=== PATIENT | male | born 1940 | race Caucasian/White ===

== ENCOUNTER 2018-10-12 12:10 | Inpatient (IN) | payer MEDICARE, BC ==
[2018-10-12] MEDS ORDERED: Ondansetron PF 4 MG/2 ML Vial ONE ×2 (12:25→23:00)
[2018-10-12] MEDS ORDERED: Atropine Sulfate 1 mg/10 ml Syringe ONE (12:30)
[2018-10-12 12:41] LABS: #Eosinphils 0.1 thou/uL (0.0-0.7); #Lymphocytes 1.4 thou/uL (1.20-3.40); #Monocytes 0.8 thou/uL (0.11-0.59); #Neutrophils 12.7 thou/uL (1.40-6.50); %Basophils 0.1 % (0.0-1.0); %Eosinophils 0.5 % (0.0-10.0); %Lymphocytes 9.3 % (21.0-51.0); %Monocytes 5.1 % (0.0-10.0); %Neutrophils 84.9 % (42.0-75.0); Hemoglobin 13.7 g/dL (14.0-18.0); Mean Corpuscular HGB CONC 32.3 g/dL (32.0-36.0); Mean Corpuscular Hemoglobin 27.7 pg (27.0-31.0); Mean Corpuscular Volume 85.8 fL (78.0-98.0); Mean Platelet Volume 8.6 fL (7.4-10.4); Platelet Count 236 thou/uL (130-400); RBC Distribution Width 15.2 % (11.5-14.5); Red Blood Cell (RBC) Count 4.93 mill/uL (4.70-6.10)
[2018-10-12 12:58] LABS: Base Excess-Venous -5.6 mmol/L (-2.0 to 3.0); Bicarbonate (HCO3v) 17.2 mmol/L (22.0-28.0); CO2 Tension (PvCO2) 26.5 mmHg (40.0-50.0); Calcium, Ionized 1.01 mmol/L (See Comments:); Chloride 105 mmol/L (98-107); Glucose 168 mg/dL (83-110); Hemoglobin - Calc 14.4 g/dL (14.0-18.0); O2 Tension (PvO2) 49.2 mmHg (35.0-45.0); Potassium 3.5 mmol/L (3.5-5.1); Sodium 139 mmol/L (138-145)
[2018-10-12] MEDS ORDERED: ISOVUE-370 76%-LOCM 1 ML ONE (12:58)
[2018-10-12 13:11] LABS: Base Excess-Venous -3.3 mmol/L (-2.0 to 3.0); Bicarbonate (HCO3v) 22.2 mmol/L (22.0-28.0); CO2 Tension (PvCO2) 40.4 mmHg (40.0-50.0); Calcium, Ionized 1.16 mmol/L (See Comments:); Chloride 105 mmol/L (98-107); Glucose 180 mg/dL (83-110); Hemoglobin - Calc 12.8 g/dL (14.0-18.0); Lactate 2.37 mmol/L (0.50-2.20); O2 Tension (PvO2) 49.6 mmHg (35.0-45.0); Potassium 3.8 mmol/L (3.5-5.1); Sodium 138 mmol/L (138-145); T. Carbon Dioxide 23.4 mmol/L (22.0-28.0); pH (Venous) 7.348 (7.320-7.430); vO2 Saturation-calc 82.8 % (60.0-85.0)
[2018-10-12 13:21] LABS: PTT 27.6 SEC (22.9-36.1)
[2018-10-12 13:22] LABS: INR-International Normal Ratio 1.3; Prothrombin Time 15.8 SEC (12.0-14.7)
[2018-10-12 13:25] LABS: Calc. Creatinine Clearance 0 mL/min (70-130)
[2018-10-12 13:43] LABS: Anion Gap 15 mmol/L (10-20); Carbon Dioxide 21 mmol/L (23-31); Chloride 105 mmol/L (98-107); Potassium 3.9 mmol/L (3.5-5.1); Sodium 137 mmol/L (136-145)
[2018-10-12 13:44] LABS: BUN (Urea Nitrogen) 18 mg/dL (8.4-25.7); Estimated GFR-MDRD 61
[2018-10-12 13:46] LABS: Bilirubin, Total 1.3 mg/dL (0.2-1.2); Calcium 8.6 mg/dL (7.8-10.44); Glucose 181 mg/dL (83-110)
[2018-10-12 13:47] LABS: Protein, Total 5.8 g/dL (5.8-8.1)
[2018-10-12 13:48] LABS: Albumin 3.5 g/dL (3.4-4.8)
[2018-10-12 13:49] LABS: Globulin 2.3 g/dL (2.4-3.5)
[2018-10-12 13:50] LABS: Alkaline Phosphatase 130 U/L (40-150)
[2018-10-12 13:51] LABS: AST (SGOT) 35 U/L (5-34); CK (CPK) 39 U/L (30-200)
[2018-10-12 13:52] LABS: ALT (SGPT) 25 U/L (8-55)
--- NOTE | 2018-10-12 13:57 | CT ---
CTA OF THE CHEST AND ABDOMEN AND PELVIS: HISTORY: Abdominal pain that radiates to the back. TECHNIQUE: Multiple contiguous axial images were obtained in a CTA of the chest, abdomen, and pelvis per aortic dissection protocol. Three-D sagittal and coronal MIP reformats were performed. FINDINGS: Emphysematous changes are seen in the lungs. A calcified granuloma is seen in the right upper lobe. No suspicious pulmonary nodules are seen. No focal infiltrates are present. No pneumothorax or ple ural effusions are seen. The heart is normal in size without focal cardiac abnormality. No hilar or mediastinal lymphadenopat hy are seen. There is a small hiatal hernia. Numerous cysts are seen in the liver measuring up to 3.2 cm in size. Calcifications in the liver and spleen are from prior granulomatous disease. There are stranding changes surrounding the pancreas consistent with acute pancreatitis. No enlargem ent of the common bile duct is seen. No free air or free fluid is seen in the abdomen or pelvis. Th e large and small bowel are unremarkable. No abdominal or pelvic lymphadenopathy are seen. Calcifications are seen in the coronary arteries. The patient is status post CABG. The thoracic aorta is normal in caliber without evidence of dissection or aneurysmal dilatation. Mod erate atherosclerotic disease is seen in the infrarenal aorta. There is an area of aneurysmal dilata tion of the infrarenal aorta above the bifurcation where it measures 3.7 cm in greatest dimension. N o enlargement of the common iliac arteries is seen. The celiac trunk, SMA, and ARSENIO are patent. A si ngle renal artery is seen on each side without significant atherosclerotic disease. IMPRESSION: 1. Acute pancreatitis. 2. No evidence of aortic dissection. 3. 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 4. Hepatic cysts. POS: [facility]
--- NOTE | 2018-10-12 14:10 | PDOC.FPRHP ---
- History of Present Illness Chief Complaint: Abdominal pain, N/V History of Present Illness: 78 yo M with PMH One episode vomiting before starting 8 hour car ride from [place] to [facility]. In car started to have vomiting. In car pt got hot/cold and "almost passed out on me". states he was out of it and green/ashy. He was responsive but just not with it for about 20-30 min until arriving to ED. He continues to feel nauseous. Reports middle lower abdominal pain that has continued to worsen. Reports constipation, denies dysuria. Says he peed very early this morning but has not since. Took home lasix this morning and says he did not vomit this. Denies fever, reports chills. Last cath 06/2018. Plan for 01/2019 to have echo, stress trest. 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 Previous alcohol use. No drug use. - Review of Systems General: reports: fever/chills ENT: denies: nasal congestion Respiratory: denies: cough, shortness of breath, exercise intolerance Cardiovascular: denies: chest pain, palpitation, orthopnea Gastrointestinal: reports: nausea, vomiting, constipation, abdominal pain. denies: diarrhea Genitourinary: denies: incontinence, dysuria Skin: denies: rashes Neurological: denies: numbness, syncope Psychological: reports: anxiety. denies: depression - Vital signs BP: 171/91 HR: 84 RR: 29 Tmax: Pox: 98% on 1L Wt: 66 kg FMR H&P: Results - Labs Result Diagrams: 10/12/18 12:25 10/12/18 12:47 Lab results: WBC 15.0 thou/uL (4.8-10.8) H 10/12/18 12:25 Hgb 13.7 g/dL (14.0-18.0) L 10/12/18 12:25 Hct 42.3 % (42.0-52.0) 10/12/18 12:25 MCV 85.8 fL (78.0-98.0) 10/12/18 12:25 Plt Count 236 thou/uL (130-400) 10/12/18 12:25 Neutrophils % 84.9 % (42.0-75.0) H 10/12/18 12:25 VBG pCO2 40.4 mmHg (40.0-50.0) 10/12/18 13:08 VBG pO2 49.6 mmHg (35.0-45.0) H 10/12/18 13:08 Sodium 137 mmol/L (136-145) 10/12/18 12:47 Potassium 3.9 mmol/L (3.5-5.1) 10/12/18 12:47 Chloride 105 mmol/L (98-107) 10/12/18 12:47 Carbon Dioxide 21 mmol/L (23-31) L 10/12/18 12:47 BUN 18 mg/dL (8.4-25.7) 10/12/18 12:47 Creatinine 1.15 mg/dL (0.7-1.3) 10/12/18 12:47 Glucose 181 mg/dL (83-110) H 10/12/18 12:47 Lactic Acid 2.4 mmol/L (0.5-2.2) H 10/12/18 13:05 Calcium 8.6 mg/dL (7.8-10.44) 10/12/18 12:47 Total Bilirubin 1.3 mg/dL (0.2-1.2) H 10/12/18 12:47 AST 35 U/L (5-34) H 10/12/18 12:47 ALT 25 U/L (8-55) 10/12/18 12:47 Alkaline Phosphatase 130 U/L (40-150) 10/12/18 12:47 Creatine Kinase 39 U/L (30-200) 10/12/18 12:47 Serum Total Protein 5.8 g/dL (5.8-8.1) 10/12/18 12:47 Albumin 3.5 g/dL (3.4-4.8) 10/12/18 12:47 FMR H&P: A/P - Problem List (1) Acute pancreatitis Current Visit: Yes Status: Acute Code(s): K85.90 - ACUTE PANCREATITIS WITHOUT NECROSIS OR INFECTION, UNSP (2) Symptomatic bradycardia Current Visit: Yes Status: Acute Code(s): R00.1 - BRADYCARDIA, UNSPECIFIED (3) Urinary retention Current Visit: Yes Status: Acute Code(s): R33.9 - RETENTION OF URINE, UNSPECIFIED (4) Lactic acid acidosis Current Visit: Yes Status: Acute Code(s): E87.2 - ACIDOSIS (5) Hypothermia Current Visit: Yes Status: Acute Code(s): T68.XXXA - HYPOTHERMIA, INITIAL ENCOUNTER (6) Constipation Current Visit: Yes Status: Acute Code(s): K59.00 - CONSTIPATION, UNSPECIFIED (7) CAD (coronary artery disease) Current Visit: Yes Status: Acute Code(s): I25.10 - ATHSCL HEART DISEASE OF [place] CORONARY ARTERY W/O ANG PCTRS (8) COPD (chronic obstructive pulmonary disease) Current Visit: Yes Status: Acute (9) HTN (hypertension) Current Visit: Yes Status: Acute Code(s): I10 - ESSENTIAL (PRIMARY) HYPERTENSION (10) HLD (hyperlipidemia) Current Visit: Yes Status: Acute Code(s): E78.5 - HYPERLIPIDEMIA, UNSPECIFIED (11) Anxiety Current Visit: Yes Status: Acute Code(s): F41.9 - ANXIETY DISORDER, UNSPECIFIED (12) Atrial fibrillation Current Visit: Yes Status: Acute Code(s): I48.91 - UNSPECIFIED ATRIAL FIBRILLATION (13) BPH (benign prostatic hyperplasia) Current Visit: Yes Status: Acute Code(s): N40.0 - BENIGN PROSTATIC HYPERPLASIA WITHOUT LOWER URINRY TRACT SYMP (14) CHF (congestive heart failure) Current Visit: Yes Status: Acute Code(s): I50.9 - HEART FAILURE, UNSPECIFIED (15) GERD (gastroesophageal reflux disease) Current Visit: Yes Status: Acute Code(s): K21.9 - GASTRO-ESOPHAGEAL REFLUX DISEASE WITHOUT ESOPHAGITIS - Plan 78 yo M with PMH CAD, COPD, HTN, afib on anticoagulation, CHF, BPH presented to ED abdominal pain. Acute Pancreatitis - seen on CT, lipase 8871, amylase 2947. WBC 15. Lactic 3. SIRS + by WBC and hypothermia however inflammatory source rather than infectious. Will culture if fevers or worsens. - patient endorses alcohol use of 2 glasses wine/night - many initial labs drawn in ED were "contaminated" and unreliable. Pending repeats on some of these. - RUQ ultrasound pending - NPO now, advance diet as tolerated - LR @ 200, will monitor for signs of volume overload with uncertain hx of CHF Symptomatic Bradycardia - episode of bradycardia in 30s, 90/37 BP. s/p atropine and IVF in ED which resolved. - has hx of atrial fibrillation and currently has loop recorder with hx of PVCs - now resolved with BP 150s, HR 87, stable - TSH pending - will continue to monitor and consider cardiology consult Urinary Retention - >1000mL, parker inserted in ED - no hx retention but does have BPH - will continue tamsulosin when parker out - UA negative Lactic Acidosis - 3 initially. pending repeat Hypothermia, resolved - 96.6 in ED, resolved with bear hugger in ED Constipation - urinary retention could have contributed - colace ordered CAD s/p CABG - home aspirin 81mg daily COPD - home fluticasone and atrovent HTN - home carvedilol 3.125 mg daily, lisinopril 2.5mg daily HLD - home atorvastatin 80 mg daily Anxiety - home alprazolam prn Atrial fibrillation - home eliquis 5 mg BID BPH - home finasteride 5mg daily, tamsulosin 0.4mg- 2 capsules daily CHF - home furosemide 20mg daily and potassium 20 meq daily in addition to BP meds GERD - home nexium 40mg daily PCP: out of town Ppx: Lovenox Diet: NPO, advance as tolerated Dispo: admit to [facility], expected stay >[address] Chacon. FMR H&P: Upper Level - Pertinent history 78 year old male with PMH CAD s/p CABG x3, Hx TIA, Hx of arrhythmia with loop recorder presents with N/V and severe abdominal pain since this AM. Patient and his were on their way from [place] when patient started to feel "odd ". He went through spells of being hot and cold. He felt faint, but denies losing consciousness. states he appeared ashy at the time. He was also responsive but appeared confused and lethargic. He continues to feel nauseous and continues to have abdominal pain located diffusely throughout, but worse in the suprapubic region. Patient denies dysuria but states that he has not used the restroom since this morning despite taking his lasix. He does have a history of BPH but has not had significant issues with urinary retention. Patient also endorses constipation currently. Patient denies nausea, vomiting. He does have CAD s/p CABG x3. He follows closely with data clerk [employer]. He is due for echo and stress test 01/2019. Patient denies chest pain, shortness of breath, dizziness, or weakness. - Pertinent findings General: Alert and oriented x3. No acute distress. HEENT: EOMI. PERRLA. No pharyngeal erythema. Dentures in place. Cardio: RRR, no murmurs Resp: Decreased breath sounds throughout, no wheezing, no acute respiratory distress Abdomen: Diffusely tender to palpation, worse in suprapubic region, positive rebound tenderness in LLQ, referred pain to suprapubic region when palpating other areas on abdomen, bowel sound decreased throughout Ext: No edema or cyanosis - Plan Date/Time: 10/12/18 1410 I, Anna Armenta, have evaluated this patient and agree with findings/plan as outlined by planner intern resident. Pertinent changes/additions are listed here. 78 year old male presents with abdominal pain, N/V 1. Acute pancreatitis - Pancreatic fat stranding on CT, Lipase >8000 - Jaja's score of 1 - Fluid resuscitation; on LR at 200 mL/hr (will need to monitor respiratory status d/t history of CHF; consider decreasing) - NPO --> clear liquid diet when nausea resolved (initiate diet as soon as patient can tolerate) - No history of alcohol use; RUQ U/S negative for gallstones - Zofran PRN - Fentanyl for pain control d/t kidney function - Meets SIRS criteria, but no obvious source of infection 2. Symptomatic bradycardia - s/p atropine in ED - No further bradycardia - Patient with loop recorder in place d/t arrhythmias - Follows closely with data clerk [facility]; consider cardiology consult if bradycardia recurs - Patient being monitored in IMCU - TSH pending - BP stable - Thought to be vasovagal in nature per ED 3. Hypothermia - Temp on presentation 96.7 F; uncertain etiology - s/p bear hugger with temp to 99.4F - TSH pending 4. Leukocytosis - Likely 2/2 inflammation from acute pancreatitis - Meets SIRS criteria with no obvious source of infection - Consider blood cultures if patient fevers 5. Urinary Retention - >1000mL, parker inserted in ED - no hx retention but does have BPH - will continue tamsulosin - UA negative 6. Lactic Acidosis - 3 --> 2.4 - repeat pending 7. Constipation - urinary retention could have contributed - colace [place] 8. CAD s/p CABG - home aspirin 81mg daily - Home BB 9. COPD - home fluticasone and atrovent 10. HTN - home carvedilol 3.125 mg daily, lisinopril 2.5mg daily 11. HLD - home atorvastatin 80 mg daily 12. Anxiety - home alprazolam prn 13. Atrial fibrillation - home eliquis 5 mg BID 14. BPH - home finasteride 5mg daily, tamsulosin 0.4mg- 2 capsules daily 15. CHF - home furosemide 20mg daily and potassium 20 meq daily in addition to BP meds 16. GERD - home nexium 40mg daily PCP: out of town Ppx: Eliquis Diet: NPO, advance as tolerated Dispo: admit to IMCU, expected stay >2 midnights Anna Armenta, DO PGY-2
--- NOTE | 2018-10-12 14:12 | RAD ---
RADIOGRAPH CHEST 1 VIEW: HISTORY: An 78-year-old male with bradycardia. FINDINGS: The thoracic aorta is tortuous and ectatic. There is no evidence of air space density, pneumothorax, or pulmonary edema. The lateral costophrenic angles are sharp. There is no cardiomegaly. There ar e sternotomy wires. There are surgical clips overlying the left mediastinum and heart. There is a l oop recorder overlying the medial left base. IMPRESSION: 1) No acute pulmonary findings. 2) Ectasia of thoracic aorta. 3) Status post coronary artery bypass graft surgery is evidence for coronary atherosclerotic disease. frank [] POS: [facility]
[2018-10-12 14:43] LABS: Lipase 8871 U/L (8-78)
[2018-10-12 16:21] LABS: Bilirubin Negative (Negative); Blood, Urine Negative (Negative); Clarity CLEAR (Clear); Glucose, Urine (Dipstick) Negative (Negative); Leukocyte Negative (Negative); Nitrite Negative (Negative); Protein, Urine (Dipstick) Negative (Neg-Trace); Specific Gravity, Urine 1.028 (1.002-1.036); Urobilinogen 0.2 mg/dL (0.2-1.0); pH, Urine 6.5 (5.0-9.0)
[2018-10-12 16:33] LABS: Troponin I Less than 0.010 ng/mL (< 0.028)
[2018-10-12] MEDS ORDERED: Fentanyl 100 MCG/2 ML VIAL ONE ×2 (17:40→22:52)
[2018-10-12] MEDS ORDERED: Lactated Ringer's 1,000 ML IV SCH (19:47)
[2018-10-12] MEDS ORDERED: Fentanyl 100 MCG/2 ML VIAL SLOW IVP PRN (19:47)
[2018-10-12] MEDS ORDERED: Acetaminophen 325 MG TAB PO PRN (19:47)
--- NOTE | 2018-10-12 20:43 | ULT ---
ULTRASOUND ABDOMEN LIMITED: (RIGHT UPPER QUADRANT) 10/12/18 HISTORY: 78-year-old male with pancreatitis. FINDINGS: Gallbladder: Normal wall thickness. No gallstones or pericholecystic fluid identified. No sonographic Goodman's sign. Common duct: 4 mm. Liver: Several hepatic cysts adjacent to the distended gallbladder. Pancreas: Poorly visualized. Right kidney: No hydronephrosis. IMPRESSION: 1. No sonographic evidence of cholelithiasis, acute cholecystitis or biliary obstruction. 2. Several hepatic cysts. GIL Redmond POS: [facility]
[2018-10-12 21:24] LABS: Lactic Acid 1.6 mmol/L (0.5-2.2)
[2018-10-12] MEDS: Docusate 100 MG CAP PO SCH (21:31)
[2018-10-12 21:33] LABS: Troponin I 0.017 ng/mL (< 0.028)
[2018-10-13 05:17] LABS: #Lymphocytes 0.6 thou/uL (1.20-3.40); #Monocytes 0.5 thou/uL (0.11-0.59); #Neutrophils 9.2 thou/uL (1.40-6.50); %Basophils 0.1 % (0.0-1.0); %Eosinophils 0.2 % (0.0-10.0); %Lymphocytes 5.6 % (21.0-51.0); %Monocytes 4.7 % (0.0-10.0); %Neutrophils 89.5 % (42.0-75.0); Hemoglobin 12.9 g/dL (14.0-18.0); Mean Corpuscular HGB CONC 31.4 g/dL (32.0-36.0); Mean Corpuscular Hemoglobin 27.7 pg (27.0-31.0); Mean Corpuscular Volume 88.1 fL (78.0-98.0); Mean Platelet Volume 8.7 fL (7.4-10.4); Platelet Count 186 thou/uL (130-400); Red Blood Cell (RBC) Count 4.68 mill/uL (4.70-6.10); White Blood Cell (WBC) Count 10.2 thou/uL (4.8-10.8)
--- NOTE | 2018-10-13 05:38 | PDOC.FM ---
- Subjective Subjective: Patient reports feeling better this morning. He feel thirsty for water but is not interested in eating. concerned about rash on face. It is not pruritic or painful and is not spreading. also concerned about "fever" of 99. Abdominal pain improving but feels constipated and requests suppository to aid in this. - Objective MAR Reviewed: Yes Result Diagrams: 10/13/18 03:42 10/13/18 03:42 Phys Exam - Physical Examination Constitutional: NAD Respiratory: no wheezing, clear to auscultation bilateral Cardiovascular: RRR, no significant murmur Gastrointestinal: soft, no distention, positive bowel sounds less upper and lower abdominal pain to palpation Musculoskeletal: no edema Neurological: non-focal Dx/Plan (1) Acute pancreatitis Code(s): K85.90 - ACUTE PANCREATITIS WITHOUT NECROSIS OR INFECTION, UNSP Status: Acute (2) Symptomatic bradycardia Code(s): R00.1 - BRADYCARDIA, UNSPECIFIED Status: Acute (3) Urinary retention Code(s): R33.9 - RETENTION OF URINE, UNSPECIFIED Status: Acute (4) Lactic acid acidosis Code(s): E87.2 - ACIDOSIS Status: Acute (5) Hypothermia Code(s): T68.XXXA - HYPOTHERMIA, INITIAL ENCOUNTER Status: Acute (6) Constipation Code(s): K59.00 - CONSTIPATION, UNSPECIFIED Status: Acute (7) CAD (coronary artery disease) Code(s): I25.10 - ATHSCL HEART DISEASE OF [place] CORONARY ARTERY W/O ANG PCTRS Status: Acute (8) COPD (chronic obstructive pulmonary disease) Status: Acute (9) HTN (hypertension) Code(s): I10 - ESSENTIAL (PRIMARY) HYPERTENSION Status: Acute (10) HLD (hyperlipidemia) Code(s): E78.5 - HYPERLIPIDEMIA, UNSPECIFIED Status: Acute (11) Anxiety Code(s): F41.9 - ANXIETY DISORDER, UNSPECIFIED Status: Acute (12) Atrial fibrillation Code(s): I48.91 - UNSPECIFIED ATRIAL FIBRILLATION Status: Acute (13) BPH (benign prostatic hyperplasia) Code(s): N40.0 - BENIGN PROSTATIC HYPERPLASIA WITHOUT LOWER URINRY TRACT SYMP Status: Acute (14) CHF (congestive heart failure) Code(s): I50.9 - HEART FAILURE, UNSPECIFIED Status: Acute (15) GERD (gastroesophageal reflux disease) Code(s): K21.9 - GASTRO-ESOPHAGEAL REFLUX DISEASE WITHOUT ESOPHAGITIS Status: Acute - Plan Plan: 78 yo M with PMH CAD, COPD, HTN, afib on anticoagulation, CHF, BPH presented to ED abdominal pain. Acute Pancreatitis - seen on CT, lipase 8871, amylase 2947. WBC 15. Lactic 3. SIRS + by WBC and hypothermia however inflammatory source rather than infectious. Will culture if fevers or worsens. - RUQ ultrasound negative. Not gallstone or alcohol in origin. Review of home medications does not seem suggestive. Could be idiopathic etiology. - Clear liquids, advance diet as tolerated - LR @ 150, will monitor for signs of volume overload with uncertain hx of CHF Symptomatic Bradycardia - single episode of bradycardia in 30s, 90/37 BP. s/p atropine and IVF in ED which resolved. - has hx of atrial fibrillation and currently has loop recorder with hx of PVCs - now resolved with BP and HR stable throughout night. - TSH normal - will continue to monitor with plan for outpatient cardiology follow up unless another acute event occurs. - hold home carvedilol for now Urinary Retention - >1000mL, parker inserted in ED - no hx retention but does have BPH - will restart tamsulosin when parker out - UA negative - tomorrow will consider voiding trial and urology consult if does not resolve Lactic Acidosis - 3 initially, downtrended to 1.6 Hypothermia, resolved - 96.6 in ED, resolved with bear hugger in ED Constipation - urinary retention could have contributed - colace ordered as well as dulcolax [place] prn CAD s/p CABG - home aspirin 81mg daily COPD - home fluticasone and atrovent HTN - home carvedilol 3.125 mg daily (held), lisinopril 2.5mg daily HLD - home atorvastatin 80 mg daily Anxiety - home alprazolam prn Atrial fibrillation - home eliquis 5 mg BID BPH - home finasteride 5mg daily, tamsulosin 0.4mg- 2 capsules daily CHF - home furosemide 20mg daily and potassium 20 meq daily in addition to BP meds GERD - home nexium 40mg daily PCP: out of town Ppx: home elequis Diet: CL, advance as tolerated Dispo: pending improvement
[2018-10-13 05:46] LABS: ALT (SGPT) 19 U/L (8-55); AST (SGOT) 25 U/L (5-34); Albumin 3.3 g/dL (3.4-4.8); Alkaline Phosphatase 120 U/L (40-150); Anion Gap 14 mmol/L (10-20); BUN (Urea Nitrogen) 16 mg/dL (8.4-25.7); Bilirubin, Total 0.9 mg/dL (0.2-1.2); Calc. Creatinine Clearance 0 mL/min (70-130); Calcium 8.7 mg/dL (7.8-10.44); Carbon Dioxide 22 mmol/L (23-31); Chloride 107 mmol/L (98-107); Estimated GFR-MDRD 64; Globulin 2.2 g/dL (2.4-3.5); Glucose 152 mg/dL (83-110); Potassium 4.1 mmol/L (3.5-5.1); Protein, Total 5.5 g/dL (5.8-8.1); Sodium 139 mmol/L (136-145)
[2018-10-13] MEDS ORDERED: Fentanyl 100 MCG/2 ML VIAL ONE (06:05)
[2018-10-13] MEDS ORDERED: Bisacodyl 10 MG SUPP PR PRN (07:43)
[2018-10-13] MEDS: Lactated Ringer's 1,000 ML IV SCH ×4 (09:30→18:13)
[2018-10-13] MEDS: Apixaban 5 MG TAB PO SCH ×2 (09:35→20:46)
[2018-10-13] MEDS: Docusate 100 MG CAP PO SCH ×2 (09:36→20:46)
[2018-10-13] MEDS ORDERED: Ketorolac Tromethamine 30 MG/ML VIAL IVP PRN (09:45)
[2018-10-13] MEDS ORDERED: traMADol HCl 50 MG TAB PO PRN ×2 (09:49→20:16)
[2018-10-13] MEDS ORDERED: ALPRAZolam 0.25 MG TAB PO PRN (12:29)
[2018-10-13] MEDS ORDERED: Ondansetron ODT 4 MG TAB ONE (12:52)
[2018-10-13] MEDS: Ondansetron ODT 4 MG TAB PO PRN ×2 (12:53→17:16)
[2018-10-13 14:59] LABS: Cardiac Risk 2.8 (Less than 4.5)
[2018-10-13] MEDS ORDERED: Senokot 8.6 MG TAB PO PRN (20:08)
[2018-10-13] MEDS ORDERED: traMADol HCl 50 MG TAB PO SCH (20:30)
[2018-10-13] MEDS: traMADol HCl 50 MG TAB PO PRN (20:46)
[2018-10-14] MEDS: Lactated Ringer's 1,000 ML IV SCH ×3 (00:57→15:01)
[2018-10-14] MEDS: Ondansetron ODT 4 MG TAB PO PRN ×2 (02:34→10:10)
--- NOTE | 2018-10-14 06:12 | PDOC.FM ---
- Subjective Subjective: Pleasant 78 yo male seen at bedside this AM. Patient is much improved. He has not had any more n/v and his pain is much better controlled. His does offer significant weight loss over the last several months due to poor appetite. Patient states he is depressed due to their current living situation where he doesn't feel comfortable navigating in their current city. Patient would like to move and believes this will help a great deal. No other acute events overnight. - Objective Vital Signs & Weight: Vital Signs (12 hours) Temp Pulse Resp BP BP Pulse Ox 10/14/18 03:00 98.2 F 69 18 132/61 93 L 10/13/18 23:00 96.3 F L 71 18 104/53 L 93 L 10/13/18 19:20 98.3 F 54 L 15 121/58 L 95 Weight Weight 66.224 kg I&O: 10/12/18 10/13/18 10/14/18 05:59 06:59 06:59 Intake Total 0 Output Total 1035 Balance -1035 Result Diagrams: 10/14/18 05:49 10/14/18 05:49 Phys Exam - Physical Examination Constitutional: NAD HEENT: PERRLA, moist MMs Neck: no nodes Right IJ in place Respiratory: no wheezing, clear to auscultation bilateral Cardiovascular: RRR, no significant murmur Gastrointestinal: soft, no distention, positive bowel sounds mild tenderness to epigastrium. Musculoskeletal: no edema, pulses present Neurological: non-focal, normal sensation, moves all 4 limbs Psychiatric: normal affect, A&O x 3 Skin: no rash Dx/Plan (1) Acute pancreatitis Code(s): K85.90 - ACUTE PANCREATITIS WITHOUT NECROSIS OR INFECTION, UNSP Status: Acute (2) Anxiety Code(s): F41.9 - ANXIETY DISORDER, UNSPECIFIED Status: Chronic (3) Atrial fibrillation Code(s): I48.91 - UNSPECIFIED ATRIAL FIBRILLATION Status: Chronic (4) BPH (benign prostatic hyperplasia) Code(s): N40.0 - BENIGN PROSTATIC HYPERPLASIA WITHOUT LOWER URINRY TRACT SYMP Status: Chronic (5) Constipation Code(s): K59.00 - CONSTIPATION, UNSPECIFIED Status: Acute (6) Lactic acid acidosis Code(s): E87.2 - ACIDOSIS Status: Resolved (7) Symptomatic bradycardia Code(s): R00.1 - BRADYCARDIA, UNSPECIFIED Status: Resolved (8) Urinary retention Code(s): R33.9 - RETENTION OF URINE, UNSPECIFIED Status: Acute (9) HTN (hypertension) Code(s): I10 - ESSENTIAL (PRIMARY) HYPERTENSION Status: Chronic - Plan Plan: Acute Pancreatitis - seen on CT, lipase 8871, amylase 2947. WBC 15. Lactic 3. SIRS + by WBC and hypothermia however inflammatory source rather than infectious. Will culture if fevers or worsens. - RUQ ultrasound negative. Not gallstone or alcohol in origin. Review of home medications does not seem suggestive. Could be idiopathic etiology. - Clear liquids, advance diet as tolerated - LR @ 150, will monitor for signs of volume overload with uncertain hx of CHF Symptomatic Bradycardia - single episode of bradycardia in 30s, 90/37 BP. s/p atropine and IVF in ED which resolved and not occurred again. - has hx of atrial fibrillation and currently has loop recorder with hx of PVCs - now resolved with BP and HR stable throughout night. - TSH normal - will continue to monitor with plan for outpatient cardiology follow up unless another acute event occurs. - hold home carvedilol for now Urinary Retention - >1000mL, parker inserted in ED - no hx retention but does have BPH - Voiding trial this AM and restart flomax. - UA negative - Will consider urology consult if does not resolve Lactic Acidosis, resolved - 3 initially, downtrended to 1.6 Hypothermia, resolved - 96.6 in ED, resolved with bear hugger in ED Constipation - urinary retention could have contributed - colace ordered as well as dulcolax [place] prn - Per patient small BM overnight. Atrial fibrillation - home eliquis 5 mg BID BPH - home finasteride 5mg daily, tamsulosin 0.4mg- 2 capsules daily CHF - home furosemide 20mg daily and potassium 20 meq daily in addition to BP meds Disposition: Stable, will continue current plan of care and plan for discharge when ready. Addendum - Attending - Attending Attestation Date/Time: 10/14/18 [id number] I personally evaluated the patient and discussed the management with Dr. Clinton I agree with the History, Examination, Assessment and Plan documented above with any addition or exceptions noted below.Patient still with significant nausea consider scheduled reglan. History of anorexia, weight loss and depression warrant screen further with tumor marker for Pancreatic CA no jaundice and LFT wnl. Etiology pancreatits ruled out GBD,alcohol use , dyslipidemia only suspect RX ? furosemide. Parker clamped patient with hx BPH hope d/c parker soon.Discussed care plan with patient and spouse.
[2018-10-14 06:23] LABS: #Lymphocytes 0.5 thou/uL (1.20-3.40); #Monocytes 0.9 thou/uL (0.11-0.59); #Neutrophils 14.2 thou/uL (1.40-6.50); %Eosinophils 0.1 % (0.0-10.0); %Lymphocytes 3.4 % (21.0-51.0); %Monocytes 5.9 % (0.0-10.0); %Neutrophils 90.5 % (42.0-75.0); Mean Corpuscular HGB CONC 29.5 g/dL (32.0-36.0); Mean Corpuscular Hemoglobin 26.2 pg (27.0-31.0); Mean Corpuscular Volume 88.7 fL (78.0-98.0); Mean Platelet Volume 8.6 fL (7.4-10.4); Platelet Count 155 thou/uL (130-400); RBC Distribution Width 15.3 % (11.5-14.5); Red Blood Cell (RBC) Count 4.18 mill/uL (4.70-6.10); White Blood Cell (WBC) Count 15.6 thou/uL (4.8-10.8)
[2018-10-14 06:32] LABS: ALT (SGPT) 13 U/L (8-55); AST (SGOT) 19 U/L (5-34); Albumin 2.8 g/dL (3.4-4.8); Alkaline Phosphatase 87 U/L (40-150); Anion Gap 10 mmol/L (10-20); BUN (Urea Nitrogen) 10 mg/dL (8.4-25.7); Bilirubin, Total 0.7 mg/dL (0.2-1.2); Calc. Creatinine Clearance 68 mL/min (70-130); Calcium 8.1 mg/dL (7.8-10.44); Carbon Dioxide 24 mmol/L (23-31); Chloride 107 mmol/L (98-107); Estimated GFR-MDRD Greater than 90; Globulin 1.9 g/dL (2.4-3.5); Glucose 92 mg/dL (83-110); Potassium 3.6 mmol/L (3.5-5.1); Protein, Total 4.7 g/dL (5.8-8.1); Sodium 137 mmol/L (136-145)
[2018-10-14] MEDS: Apixaban 5 MG TAB PO SCH ×2 (08:31→21:08)
[2018-10-14] MEDS: Atorvastatin Calcium 40 MG TAB PO SCH (08:31)
[2018-10-14] MEDS: Docusate 100 MG CAP PO SCH ×2 (08:31→21:08)
[2018-10-14] MEDS: Furosemide 20 MG TAB PO SCH (08:32)
[2018-10-14] MEDS: Tamsulosin HCl 0.4 MG CAP PO SCH (08:33)
[2018-10-14] MEDS: Lisinopril 2.5 MG TAB PO SCH (08:37)
[2018-10-14] MEDS: Potassium Chloride 20 MEQ TAB PO SCH (08:37)
[2018-10-14] MEDS: Finasteride 5 MG TAB PO SCH (08:41)
--- NOTE | 2018-10-14 09:20 | HP ---
ADDENDUM: Please see the history and physical done by Dr. Tessie Grullon, for which I agree. The patient was seen, evaluated, and discussed with the residents. HISTORY OF PRESENT ILLNESS: This is an 78-year-old, who was actually driving through the [facility] up towards the [place] this morning, be long car rides. Suddenly vomited and felt almost near syncope with evidence of some abdominal pain. So, otherwise stocked in our ER, traveling through town and was found on CT of the chest and labs that pancreatitis. Non-alcohol drinker. Still has a gallbladder. Common bile duct looked okay. Does not sound like he is really on any medicines would be causing this. 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 Labs, white count a little bit high at 15, hemoglobin little bit low at 13.7. Blood gas, pH looks fine. Sugar a little bit elevated. Lipase elevated at 8871 and amylase 2947. Bicarb a little bit low at 21. PAST MEDICAL HISTORY: Per the history and physical done by Dr. Grullon in the upper levels. PAST SURGICAL HISTORY: Per the history and physical done by Dr. Grullon in the upper levels. MEDICATIONS: Per the history and physical done by Dr. Grullon in the upper levels. SOCIAL HISTORY: Per the history and physical done by Dr. Grullon in the upper levels. REVIEW OF SYSTEMS: Per the history and physical done by Dr. Grullon in the upper levels. OBJECTIVE: VITAL SIGNS: Afebrile. Vital signs stable. HEENT: Within normal limits. NECK: No lymphadenopathy or thyromegaly. CHEST: Clear. HEART: Regular rate and rhythm. ABDOMEN: Does have abdominal tenderness. No rebound or guarding. EXTREMITIES: Show no edema. LABORATORY AND DIAGNOSTIC DATA: Labs and CT as above. ASSESSMENT AND PLAN: 1. Pancreatitis. N.P.O., IV fluids, pain medications as needed, and antiemetic medications as needed. 2. History of coronary artery issues seem stable. Certainly, we will resume home medications. Job ID: [id number]
--- NOTE | 2018-10-14 11:16 | PRG ---
DATE OF SERVICE: 10/13/2018 ADDENDUM: Please see the progress note done by Dr. Tessie Grullon, for which I agree. The patient was seen, evaluated, examined, and discussed with residents. No major changes on Mr. Del Valle. He is still having some abdominal pain, although, not extreme. Did have episode of bradycardia pretty much asymptomatic yesterday, but actually may need a little atropine. It sounds like this maybe has happended before and he has a loop monitor and sees a sausage smoker in [place] for this. But, main issue now is pancreatitis and again symptom johnson, he is slowly improving and so we are going to continue IV fluids, Dulcolax as he was frustrated with constipation that he is dealing with and we will follow amylase and lipase. Otherwise, just keep him on telemetry and certainly if he gets symptomatic bradycardia again, we will address that. Holding his Coreg for now. Job ID: [id number]
[2018-10-14] MEDS: Ondansetron PF 4 MG/2 ML Vial IVP PRN ×2 (12:54→20:25)
[2018-10-15] MEDS: Lactated Ringer's 1,000 ML IV SCH ×3 (01:01→21:04)
--- NOTE | 2018-10-15 06:15 | PDOC.FM ---
- Subjective Subjective: Pleasant 78 yo male seen at bedside this AM. Patient states he is greatly improved from yesterday. He denies any pain at this time. He states that he was able to have his parker removed and has been voiding without difficulty. He notes that he was able to tolerate only a small amount of food yesterday, but is hoping that will improve today. Patient otherwise has no other complaints. - Objective Vital Signs & Weight: Vital Signs (12 hours) Temp Pulse Resp BP Pulse Ox 10/15/18 04:00 97.8 F 60 18 123/56 L 94 L 10/15/18 00:00 130/61 95 10/14/18 20:05 98.8 F 71 18 156/72 H 96 Weight Admit Weight 66.224 kg Weight 69.672 kg I&O: 10/13/18 10/14/18 10/15/18 06:59 06:59 06:59 Intake Total 2520 1680 Output Total 1485 800 Balance 1035 880 Result Diagrams: 10/15/18 05:57 10/15/18 05:57 Phys Exam - Physical Examination Constitutional: NAD HEENT: moist MMs Neck: no nodes Respiratory: no wheezing, clear to auscultation bilateral Cardiovascular: RRR, no significant murmur Gastrointestinal: soft, no distention, positive bowel sounds minimally tender to epigastrium. No guarding or rebound. Musculoskeletal: no edema, pulses present Neurological: non-focal, normal sensation, moves all 4 limbs Psychiatric: normal affect, A&O x 3 Skin: no rash Dx/Plan (1) Acute pancreatitis Code(s): K85.90 - ACUTE PANCREATITIS WITHOUT NECROSIS OR INFECTION, UNSP Status: Acute (2) Anxiety Code(s): F41.9 - ANXIETY DISORDER, UNSPECIFIED Status: Chronic (3) Atrial fibrillation Code(s): I48.91 - UNSPECIFIED ATRIAL FIBRILLATION Status: Chronic (4) BPH (benign prostatic hyperplasia) Code(s): N40.0 - BENIGN PROSTATIC HYPERPLASIA WITHOUT LOWER URINRY TRACT SYMP Status: Chronic (5) Constipation Code(s): K59.00 - CONSTIPATION, UNSPECIFIED Status: Acute (6) Lactic acid acidosis Code(s): E87.2 - ACIDOSIS Status: Resolved (7) Symptomatic bradycardia Code(s): R00.1 - BRADYCARDIA, UNSPECIFIED Status: Resolved (8) Urinary retention Code(s): R33.9 - RETENTION OF URINE, UNSPECIFIED Status: Acute (9) HTN (hypertension) Code(s): I10 - ESSENTIAL (PRIMARY) HYPERTENSION Status: Chronic - Plan Plan: Acute Pancreatitis - in ED seen on CT, lipase 8871, amylase 2947. WBC 15. Lactic 3. SIRS + by WBC and hypothermia however inflammatory source rather than infectious. Will culture if fevers or worsens. - RUQ ultrasound negative. Not gallstone or alcohol in origin. Review of home medications does not seem suggestive. - Clear liquids, advance diet as tolerated - LR @ 100, will monitor for signs of volume overload with uncertain hx of CHF - Will discontinue fluids when tolerating full PO Symptomatic Bradycardia - single episode of bradycardia in 30s, 90/37 BP. s/p atropine and IVF in ED which resolved and not occurred again. - has hx of atrial fibrillation and currently has loop recorder with hx of PVCs - now resolved with BP and HR stable throughout night. - TSH normal - will continue to monitor with plan for outpatient cardiology follow up unless another acute event occurs. - hold home carvedilol for now Urinary Retention, resolved - >1000mL, parker inserted in ED - no hx retention but does have BPH - restarted flomax. - UA negative Lactic Acidosis, resolved - 3 initially, downtrended to 1.6 Hypothermia, resolved - 96.6 in ED, resolved with bear hugger in ED Constipation, resolved - urinary retention could have contributed - colace ordered as well as dulcolax [place] prn Atrial fibrillation - home eliquis 5 mg BID BPH - home finasteride 5mg daily, tamsulosin 0.4mg- 2 capsules daily CHF - home furosemide 20mg daily and potassium 20 meq daily in addition to BP meds Disposition: Stable, will continue current plan of care and plan for discharge when ready. Addendum - Attending - Attending Attestation Date/Time: 10/15/18 1121 I personally evaluated the patient and discussed the management with Dr. Clinton I agree with the History, Examination, Assessment and Plan documented above with any addition or exceptions noted below. Will advance diet parker out voiding on his own, increase activities and diet.
[2018-10-15 06:52] LABS: #Lymphocytes 1.4 thou/uL (1.20-3.40); #Neutrophils 12.6 thou/uL (1.40-6.50); %Basophils 0.1 % (0.0-1.0); %Eosinophils 0.3 % (0.0-10.0); %Lymphocytes 9.5 % (21.0-51.0); %Monocytes 6.7 % (0.0-10.0); %Neutrophils 83.5 % (42.0-75.0); Hemoglobin 11.2 g/dL (14.0-18.0); Mean Corpuscular HGB CONC 32.6 g/dL (32.0-36.0); Mean Corpuscular Hemoglobin 28.1 pg (27.0-31.0); Mean Corpuscular Volume 86.2 fL (78.0-98.0); Mean Platelet Volume 9.1 fL (7.4-10.4); Platelet Count 159 thou/uL (130-400); RBC Distribution Width 14.9 % (11.5-14.5); White Blood Cell (WBC) Count 15.2 thou/uL (4.8-10.8)
[2018-10-15 07:15] LABS: ALT (SGPT) 15 U/L (8-55); AST (SGOT) 20 U/L (5-34); Albumin 2.9 g/dL (3.4-4.8); Alkaline Phosphatase 85 U/L (40-150); Anion Gap 9 mmol/L (10-20); BUN (Urea Nitrogen) 10 mg/dL (8.4-25.7); Bilirubin, Total 1.1 mg/dL (0.2-1.2); Calc. Creatinine Clearance 66 mL/min (70-130); Calcium 8.4 mg/dL (7.8-10.44); Carbon Dioxide 29 mmol/L (23-31); Chloride 103 mmol/L (98-107); Estimated GFR-MDRD 83; Glucose 93 mg/dL (83-110); Potassium 3.7 mmol/L (3.5-5.1); Protein, Total 4.9 g/dL (5.8-8.1); Sodium 137 mmol/L (136-145)
[2018-10-15] MEDS: Docusate 100 MG CAP PO SCH ×2 (09:08→21:04)
[2018-10-15] MEDS: Atorvastatin Calcium 40 MG TAB PO SCH (09:08)
[2018-10-15] MEDS: Apixaban 5 MG TAB PO SCH ×2 (09:08→21:04)
[2018-10-15] MEDS: Finasteride 5 MG TAB PO SCH (09:09)
[2018-10-15] MEDS: Lisinopril 2.5 MG TAB PO SCH (09:09)
[2018-10-15] MEDS: Furosemide 20 MG TAB PO SCH (09:09)
[2018-10-15] MEDS: Tamsulosin HCl 0.4 MG CAP PO SCH (09:11)
[2018-10-15] MEDS: Potassium Chloride 20 MEQ TAB PO SCH (09:11)
[2018-10-15] MEDS: Ondansetron PF 4 MG/2 ML Vial IVP PRN (17:55)
[2018-10-16 06:35] LABS: #Eosinphils 0.1 thou/uL (0.0-0.7); #Monocytes 0.9 thou/uL (0.11-0.59); #Neutrophils 8.2 thou/uL (1.40-6.50); %Eosinophils 0.7 % (0.0-10.0); %Lymphocytes 9.8 % (21.0-51.0); %Monocytes 9.1 % (0.0-10.0); %Neutrophils 80.4 % (42.0-75.0); Hemoglobin 10.7 g/dL (14.0-18.0); Mean Corpuscular HGB CONC 32.1 g/dL (32.0-36.0); Mean Corpuscular Hemoglobin 27.6 pg (27.0-31.0); Mean Platelet Volume 8.8 fL (7.4-10.4); Platelet Count 145 thou/uL (130-400); RBC Distribution Width 14.9 % (11.5-14.5); Red Blood Cell (RBC) Count 3.89 mill/uL (4.70-6.10); White Blood Cell (WBC) Count 10.2 thou/uL (4.8-10.8)
[2018-10-16 07:00] LABS: ALT (SGPT) 15 U/L (8-55); AST (SGOT) 19 U/L (5-34); Albumin 2.5 g/dL (3.4-4.8); Alkaline Phosphatase 76 U/L (40-150); Anion Gap 7 mmol/L (10-20); BUN (Urea Nitrogen) 9 mg/dL (8.4-25.7); Bilirubin, Total 1.2 mg/dL (0.2-1.2); Calc. Creatinine Clearance 113 mL/min (70-130); Carbon Dioxide 29 mmol/L (23-31); Chloride 101 mmol/L (98-107); Estimated GFR-MDRD 87; Globulin 1.8 g/dL (2.4-3.5); Glucose 95 mg/dL (83-110); Protein, Total 4.3 g/dL (5.8-8.1); Sodium 134 mmol/L (136-145)
[2018-10-16 07:06] LABS: Potassium 2.9 mmol/L (3.5-5.1)
[2018-10-16 07:47] VITALS: TEMP 98.6
[2018-10-16] MEDS ORDERED: Clopidogrel Bisulfate 75 MG TAB ONE (07:57)
--- NOTE | 2018-10-16 08:06 | PDOC.FM ---
- Subjective Subjective: Pleasant 78 yo male seen at bedside this AM. Patient states he is much improved and is ready to go home. He states that he can tolerate food without nausea or pain, but still doesn't have much of an appetite. No other complaints today. - Objective Vital Signs & Weight: Vital Signs (12 hours) Temp Pulse Resp BP Pulse Ox 10/16/18 07:44 98.6 F 58 L 18 118/61 95 10/16/18 04:27 98.8 F 63 12 125/58 L 96 Weight Admit Weight 66.224 kg Weight 115.439 kg I&O: 10/15/18 10/16/18 10/17/18 06:59 06:59 06:59 Intake Total 2884 3180 Output Total 1100 1380 Balance 1784 1800 Result Diagrams: 10/16/18 05:38 10/16/18 05:38 Phys Exam - Physical Examination Constitutional: NAD HEENT: moist MMs Respiratory: no wheezing, clear to auscultation bilateral Cardiovascular: RRR, no significant murmur Gastrointestinal: soft, no distention, positive bowel sounds diffuse minimal tenderness Musculoskeletal: no edema, pulses present Neurological: non-focal, normal sensation, moves all 4 limbs Lymphatic: no nodes Psychiatric: normal affect, A&O x 3 Skin: no rash Dx/Plan (1) Acute pancreatitis Code(s): K85.90 - ACUTE PANCREATITIS WITHOUT NECROSIS OR INFECTION, UNSP Status: Acute (2) Anxiety Code(s): F41.9 - ANXIETY DISORDER, UNSPECIFIED Status: Chronic (3) Atrial fibrillation Code(s): I48.91 - UNSPECIFIED ATRIAL FIBRILLATION Status: Chronic (4) BPH (benign prostatic hyperplasia) Code(s): N40.0 - BENIGN PROSTATIC HYPERPLASIA WITHOUT LOWER URINRY TRACT SYMP Status: Chronic (5) Constipation Code(s): K59.00 - CONSTIPATION, UNSPECIFIED Status: Acute (6) Lactic acid acidosis Code(s): E87.2 - ACIDOSIS Status: Resolved (7) Symptomatic bradycardia Code(s): R00.1 - BRADYCARDIA, UNSPECIFIED Status: Resolved (8) Urinary retention Code(s): R33.9 - RETENTION OF URINE, UNSPECIFIED Status: Acute (9) HTN (hypertension) Code(s): I10 - ESSENTIAL (PRIMARY) HYPERTENSION Status: Chronic (10) Hypokalemia Code(s): E87.6 - HYPOKALEMIA Status: Acute - Plan Plan: Acute Pancreatitis - in ED seen on CT, lipase 8871, amylase 2947. WBC 15. Lactic 3. - RUQ ultrasound negative. Not gallstone or alcohol in origin. Review of home medications does not seem suggestive. - Tolerating full diet without pain or nausea. Symptomatic Bradycardia - single episode of bradycardia in 30s, 90/37 BP. s/p atropine and IVF in ED which resolved and not occurred again. - has hx of atrial fibrillation and currently has loop recorder with hx of PVCs - now resolved with BP and HR stable throughout night. - TSH normal - will continue to monitor with plan for outpatient cardiology follow up unless another acute event occurs. - hold home carvedilol for now Urinary Retention, resolved - >1000mL, parker inserted in ED - no hx retention but does have BPH - restarted flomax. - Parkre removed 10/14 and voiding without difficulty - UA negative Lactic Acidosis, resolved - 3 initially, downtrended to 1.6 Hypothermia, resolved - 96.6 in ED, resolved with bear hugger in ED Constipation, resolved - urinary retention could have contributed - colace ordered as well as dulcolax [place] prn Atrial fibrillation - home eliquis 5 mg BID BPH - home finasteride 5mg daily, tamsulosin 0.4mg- 2 capsules daily CHF - home furosemide 20mg daily and potassium 20 meq daily in addition to BP meds Hypokalemmia - Continue home KCl - IV KCl this AM Disposition: Stable, patient is likely stable for discharge later today. Addendum - Attending - Attending Attestation Date/Time: 10/16/18 3792 I personally evaluated the patient and discussed the management with Dr. Clinton I agree with the History, Examination, Assessment and Plan documented above with any addition or exceptions noted below. Patient PCP contacted for short term f/u repeat Potassium and discussed concern with unexplained anorexia and weight loss further occult CA work up.
[2018-10-16] MEDS ORDERED: Potassium Chloride 40 MEQ in Sodium Chloride 0.9% 250 ML 250 ML IVPB SCH (08:15)
[2018-10-16] MEDS: traMADol HCl 50 MG TAB PO PRN (08:21)
[2018-10-16] MEDS: Furosemide 20 MG TAB PO SCH (08:23)
[2018-10-16] MEDS: Atorvastatin Calcium 40 MG TAB PO SCH (08:23)
[2018-10-16] MEDS: Apixaban 5 MG TAB PO SCH (08:23)
[2018-10-16] MEDS: Lisinopril 2.5 MG TAB PO SCH (08:23)
[2018-10-16] MEDS: Docusate 100 MG CAP PO SCH (08:23)
[2018-10-16] MEDS: Potassium Chloride 20 MEQ TAB PO SCH (08:24)
[2018-10-16] MEDS: Finasteride 5 MG TAB PO SCH (08:24)
[2018-10-16] MEDS: Tamsulosin HCl 0.4 MG CAP PO SCH (08:26)
[2018-10-16 12:34] VITALS: BP 114/58
--- NOTE | 2018-10-16 12:39 | PDOC.EVN ---
Event Note - Event Note Event Note: Spoke with patient's PCP Dr. Ga in [place], [place]. Patient will have follow up with him in next 1-2 days. Will have potassium checked as well as consideration for tumor markers in the near future. Patient is agreeable to plan.
[2018-10-16 14:13] VITALS: BMI 23.5
--- NOTE | 2018-10-16 15:57 | DIS ---
DATE OF ADMISSION: 10/12/2018 DATE OF DISCHARGE: 10/16/2018 RESIDENT: Fabrice Clinton MD ADMITTING ATTENDING: Ryan Chacon M.D. CONSULTS: None. PROCEDURES: On 10/12/2018, the patient underwent a CTA of the chest, abdomen and pelvis for dissection protocol. Impression was acute pancreatitis. No evidence of acute dissection, mild aneurysmal dilatation of the infrarenal aorta and hepatic cyst. On 10/12/2018, the patient underwent a chest x-ray that showed no acute pulmonary findings, ectasia of the thoracic aorta, status post coronary artery bypass graft surgery, evidence of coronary atherosclerotic disease. On 10/12/2018, the patient underwent a right upper quadrant abdominal ultrasound that showed no sonographic evidence of cholelithiasis, acute cholecystitis or biliary obstruction, several hepatic cysts. PRIMARY DIAGNOSES: 1. Acute pancreatitis. 2. Lactic acidosis, resolved. 3. Symptomatic bradycardia, resolved. 4. Urinary retention, resolved. 5. Hypokalemia, resolved. SECONDARY DIAGNOSES: 1. Anxiety. 2. Atrial fibrillation. 3. Benign prostatic hypertrophy. 4. Constipation. 5. Hypertension. DISCHARGE MEDICATIONS: 1. Nexium 20 mg p.o. daily. 2. Plavix 75 mg p.o. daily. 3. Potassium chloride 20 mEq p.o. daily. 4. Furosemide 20 mg p.o. daily. 5. Atorvastatin 80 mg p.o. daily. 6. Xanax 0.25 mg p.o. b.i.d. p.r.n. 7. Tamsulosin 0.4 mg p.o. daily. 8. Finasteride 5 mg p.o. daily. 9. Lisinopril 2.5 mg p.o. daily. 10. Eliquis 5 mg p.o. b.i.d. 11. Carvedilol 3.125 mg p.o. b.i.d. 12. Tylenol 650 mg p.o. q.4h p.r.n. 13. Zofran 4 mg p.o. q.6h. 14. Tramadol 50 mg p.o. q.4h. p.r.n. DISCONTINUED MEDICATIONS: None. HISTORY OF PRESENT ILLNESS AND HOSPITAL COURSE: This patient is an 78-year-old male with a past medical history of CAD, COPD, hyperlipidemia, hypertension and anxiety who presents with multiple episodes of vomiting while riding a car from [facility] to [place], [place]. The patient in the car began vomiting, began to get hot and cold and he almost passed out. The patient's states that he was out of it, it was green and ashy. He was responsive, but he had been altered for 20 to 30 minutes prior to the emergency room arrival. The patient continued to feel nauseous, he had middle, lower abdominal pain and it continued to worsen. The patient reports constipation. The patient denied any fevers or any chest pain at this time. During this hospitalization, the patient was obviously found to have acute pancreatitis with some notable lab values. His lipase was 8871, his amylase was 2947, his BNP was 173. His cholesterol level was 102 with an LDL of 56. His procalcitonin was measured at 0.47. The patient otherwise was rehydrated with intravenous fluids and was kept n.p.o. until he could tolerate regular diet. The patient slowly was able to advance his diet from n.p.o. to clear liquids to full liquids and then to a heart healthy diet without nausea. The patient has had an extended period of time of reduced appetite over the last 3 months with significant weight loss per his . There was consideration to test for some tumor markers for screen screening; however due to the likely false negative rate due to the acute pancreatitis and inflammation involved, it was decided that that would be better served to be done by his PCP as an outpatient. Dr. Ga out at [place], [place] was contacted for close followup with his patient and to follow his potassium level that was 2.9 on day of discharge; however he did receive 60 mEq for replenishment prior to discharge. The patient otherwise had no other complications during this hospitalization, had normotensive blood pressure, was afebrile and had a regular pulse. No other significant events occurred and patient was deemed ready for discharge. The patient otherwise tolerated the hospitalization well and discharged in appropriate condition. DISPOSITION: Stable. DISCHARGE INSTRUCTIONS: Location: Will be discharged home into the care of himself and his . Diet: As tolerated. We did recommend a slow progression of his diet to prevent any problems. Activity: Will be as tolerated. No restrictions. Followup: Will be with Dr. Ga in 1 to 3 days to further discuss management of his chronic conditions. Job ID: [id number]
== END 2018-10-16 14:36 | disposition home or self-care (01) | DRG 439 ==
LOC: ERS 12:10 → ERHOLD 13:51 → 2NO 10-13 14:54
PROVIDERS: ADMIT Family Medicine; ATTEND Family Medicine
DX: K85.90 Acute pancreatitis without necrosis or infection, unspecified (principal); E87.2 Acidosis; R65.10 Systemic inflammatory response syndrome (SIRS) of non-infectious origin without acute organ dysfunction; R00.1 Bradycardia, unspecified; R33.9 Retention of urine, unspecified; E87.6 Hypokalemia; F41.9 Anxiety disorder, unspecified; I48.91 Unspecified atrial fibrillation; N40.1 Benign prostatic hyperplasia with lower urinary tract symptoms; K59.00 Constipation, unspecified; Z79.01 Long term (current) use of anticoagulants; I25.10 Atherosclerotic heart disease of native coronary artery without angina pectoris; J44.9 Chronic obstructive pulmonary disease, unspecified; E78.5 Hyperlipidemia, unspecified; T68.XXXA Hypothermia, initial encounter; I50.9 Heart failure, unspecified; I11.0 Hypertensive heart disease with heart failure; K21.9 Gastro-esophageal reflux disease without esophagitis; Z95.1 Presence of aortocoronary bypass graft; Z88.6 Allergy status to analgesic agent; Z88.0 Allergy status to penicillin; Z87.891 Personal history of nicotine dependence; I25.2 Old myocardial infarction; Z86.73 Personal history of transient ischemic attack (TIA), and cerebral infarction without residual deficits; Z96.651 Presence of right artificial knee joint; Z79.82 Long term (current) use of aspirin; Z79.899 Other long term (current) drug therapy; R63.0 Anorexia; Z79.02 Long term (current) use of antithrombotics/antiplatelets; Z68.23 Body mass index [BMI] 23.0-23.9, adult
CPT/HCPCS: 36415; 51702; 71045; 71275; 76705; 80053; 80061; 81003; 82150; 82330; 82550; 82803; 83605; 83615; 83690; 83880; 84145; 84443; 84484; 85025; 85610; 85730; 93005; 96361; 96374; 96375; 96376; 99292; J0461; J2405; J3010; J3480; J7050; Q0162; Q9966